=== PATIENT | male | born 2000 | race Caucasian/White ===

== ENCOUNTER 2022-07-16 08:52 | Emergency (ER) | payer OTHER ==
[~2022-07-16] VITALS: Ht 165.1 cm; Wt 68.0 kg
[2022-07-16 08:54] VITALS: BP_SYST 126
[2022-07-16] MEDS ORDERED: DIPHTH,PERTUSS(ACELL),TET VAC 0.5 ML VIAL (Tdap) I.M. ONE (09:00)
--- NOTE | 2022-07-16 09:07 | NUR ---
ER at bedside examining patient.
--- NOTE | 2022-07-16 09:15 | NUR ---
Pt to CT via g[facility]. Pt denies pain. /10 on pain grade.
--- NOTE | 2022-07-16 09:30 | NUR ---
21-year-old male, brought in by paramedics, no past medical history, presents with head injury. Patient was using a machine to mix cement when he lost control the handle and hit his head. Paramedics reports of potential LOC, per paramedics, he was initially confused and repetitive. On arrival, patient is fully alert and oriented and remembers the incidents.
--- NOTE | 2022-07-16 09:47 | NUR ---
ER at bedside examining patient.
[2022-07-16] MEDS ORDERED: levETIRAcetam 1,000 MG in NS 90 ML IV ONE ×4 (10:00)
[2022-07-16] MEDS ORDERED: ONDANSETRON HCL 4 MG/2 ML VIAL IVP ONE (10:00)
--- NOTE | 2022-07-16 10:17 | NUR ---
PER DR BUSH CALLED 911 FOR [facility] 2 TRANSFER MADE JERRICA AND OENOLOGIST CATARINO RENNER
--- NOTE | 2022-07-16 10:24 | NUR ---
JUNG Ford ARRIVED FOR TRAINING TECHNICIAN
--- NOTE | 2022-07-16 10:41 | NUR ---
Report given via telephone to Iris of [facility].
--- NOTE | 2022-07-16 10:42 | NUR ---
Patient to be transferred to [facility]. Is being transferred due to higher level of care. Receiving facility has accepting physician and available space. ER physician Hoa has signed transfer form. Patient or responsible democrat has agreed to transfer and signed form. Copy of nursing notes, lab reports, EKG, Physicians Orders and X-rays to be sent with patient. Report called to Iris at receiving facility. Receiving physician is Antelmo. [facility] ambulance service has been called for transfer. ETA is 1100.
[2022-07-16 12:24] VITALS: BP_SYST 126
== END 2022-07-16 10:42 | disposition short-term general hospital (02) ==
LOC: SED 08:52
DX: S06.6X0A Traumatic subarachnoid hemorrhage without loss of consciousness, initial encounter (principal); S01.01XA Laceration without foreign body of scalp, initial encounter; S02.91XA Unspecified fracture of skull, initial encounter for closed fracture; Z79.899 Other long term (current) drug therapy; W31.89XA Contact with other specified machinery, initial encounter; Y93.89 Activity, other specified; Y92.89 Other specified places as the place of occurrence of the external cause; Y99.8 Other external cause status
CPT/HCPCS: 70450-TC; 76376; 90715; 99285